=== PATIENT | male | born 1960 | race Caucasian/White ===

== ENCOUNTER 2021-09-17 09:39 | Emergency (ER) | payer OTHER ==
[~2021-09-17] VITALS: Ht 175.3 cm; Wt 88.6 kg
[2021-09-17 09:47] VITALS: BP 150/65
[2021-09-17] MEDS ORDERED: PANT20TA18 PO (10:03)
== END 2021-09-17 10:13 | disposition home or self-care (01) ==
LOC: ER 09:40
DX: R10.10 Upper abdominal pain, unspecified (principal); K21.9 Gastro-esophageal reflux disease without esophagitis; Z76.0 Encounter for issue of repeat prescription
CPT/HCPCS: 99281